=== PATIENT | male | born 1995 | race Caucasian/White ===

== ENCOUNTER 2017-10-01 19:53 | Emergency (ER) | payer OTHER ==
[~2017-10-01] VITALS: Ht 172.7 cm; Wt 66.5 kg
[2017-10-01 19:57] VITALS: Ht 172.7 cm; Wt 66.5 kg
[2017-10-01 20:29] LABS: BASO % 0.2 %; BASO ABS # 0.02 K/uL (0-0.2); EOS % 0.1 %; EOS ABS # 0.01 K/uL (0-0.5); HEMOGLOBIN 17.5 g/dL (14.0-18.0); IG# 0.01 K/uL (0.00-0.02); LYMPH % 21.5 %; LYMPH ABS # 1.74 K/uL (1.2-3.4); MEAN CELL VOLUME 83.6 fL (80-100); MEAN CORPUSCULAR HEMOGLOBIN 30.5 pg (25-34); MEAN CORPUSCULAR HGB CONC 36.5 g/dl (32-36); MEAN PLATELET VOLUME 8.6 fL (7.4-10.4); MONO % 4.6 %; MONO ABS # 0.37 K/uL (0.11-0.59); NEUT % 73.5 %; NEUT ABS # 5.96 K/uL (1.4-6.5); PLATELET COUNT 259 K/uL (130-400); RED CELL DISTRIBUTION WIDTH CV 12.1 % (11.5-14.5); RED CELL DISTRIBUTION WIDTH SD 36.3 fL (36.4-46.3); WHITE BLOOD COUNT 8.11 K/uL (4.8-10.8)
[2017-10-01 20:47] LABS: ALBUMIN 5.4 gm/dl (3.4-5.0); CALCIUM 9.6 mg/dl (8.5-10.1); CREATININE 1.12 mg/dl (0.60-1.40); POTASSIUM 3.1 mmol/L (3.5-5.1)
[2017-10-01 20:50] LABS: TOTAL PROTEIN 9.2 gm/dl (6.4-8.2)
--- NOTE | 2017-10-01 21:30 | DIAGNOSTIC IMAGING REPORT ---
(RENAL)RETROPERITON COMP HISTORY: Flank pain FLANK PAIN COMPARISON: None. FINDINGS: Right kidney: Maximum dimension 11.0 cm. No evidence for hydronephrosis. Normal corticomedullary differentiation and cortical thickness. Left kidney: Maximum dimension 12.1 cm. No evidence for hydronephrosis. Normal corticomedullary differentiation and cortical thickness. Bladder: No bladder wall thickening. The bilateral ureteral jets were identified. IMPRESSION: Normal renal ultrasound. The above report was generated using voice recognition software. It may contain grammatical, syntax or spelling errors. Electronically signed by: Bar Ramirez M.D. 10/01/2017 9:28 PM Dictated Date/Time: 10/01/2017 9:26 PM
[2017-10-01] MEDS ORDERED: DOXYCYCLINE HYCLATE 100 MG CAP PO STA (21:34)
[2017-10-01] MEDS ORDERED: CEFTRIAXONE SOD INJ 500 MG in DEXTROSE 5% 50ML 50 ML IV STA (21:34)
[2017-10-01] MEDS ORDERED: DOXY100C PO (21:58)
[2017-10-01 22:19] VITALS: BP 133/81; PULSE 106; TEMP 36.7; O2SAT 100
--- NOTE | 2017-10-01 23:01 | EMERGENCY ROOM VISIT NOTE ---
History Report prepared by Esther: Eleni Teixeira Under the Supervision of: Dr. Roman Chavez M.D. First contact with patient: 19:59 Chief Complaint: FLANK PAIN Stated Complaint: FLANK SORNESS/URINATION/REFERRED BY link bird History of Present Illness The patient is a 22 year old male who presents to the Emergency Room with complaints of persistent bilateral flank pain starting 2 days ago. He describes the pain as a tender soreness. He was sent to the ED from [facility] after a urine test. He started urinating frequently yesterday. He is urinating every 30 minutes. He thought that he might have an infection. He is having some burning with urination which he noticed today at [facility]. He denies any discharge, hematuria, fever, nausea, or vomiting. He has never had a UTI before. He denies any history of kidney problems. He is a [employer] student. He has a history of ADHD. He denies any other medical problems. He has not been taking any new OTC medications. He has lost 10 lbs over the past few months which was intentional. Source of History: patient Onset: 2 days ago Position: other (bilateral flank) Quality: other (tender/sore) Timing: other (persistent) Associated Symptoms: + urinary symptoms, No fevers, No nausea, No vomiting Review of Systems See HPI for pertinent positives & negatives. A total of 10 systems reviewed and were otherwise negative. Past Medical & Surgical Medical Problems: (1) ADHD Family History No pertinent family history stated. Social History Smoking Status: Never Smoker Marital Status: in relationship Occupation Status: [employer] student Current/Historical Medications Scheduled Doxycycline Hyclate (Vibramycin), 100 MG PO BID Allergies Coded Allergies: Amoxicillin (Verified Allergy, Intermediate, rash, 10/01/17) Clavulanic Acid (Verified Allergy, Intermediate, rash, 10/01/17) Uncoded Allergies: PENICILLIN (Allergy, Intermediate, rash, 10/01/17) Physical Exam Vital Signs Date Time Temp Pulse Resp B/P (MAP) Pulse Ox O2 Delivery O2 Flow Rate FiO2 10/01/17 22:19 36.7 106 18 133/81 100 10/01/17 19:57 36.7 93 18 131/85 99 Room Air Physical Exam GENERAL: Patient is in no acute distress. HEENT: No acute trauma, normocephalic atraumatic, mucous membranes moist, no nasal congestion, no scleral icterus. NECK: No stridor, no adenopathy, no meningismus, trachea is midline. LUNGS: Clear to auscultation bilaterally, no wheeze, no rhonchi, breath sounds equal. HEART: Without murmurs gallops or rubs, regular rate and rhythm. ABDOMEN: Soft, mildly tender in the epigastrium and LLQ, bowel sounds positive, no hernias, no peritonitis. BACK: No flank discomfort with percussion. EXTREMITIES: No cyanosis or edema, full range of motion of all the joints without pain or difficulty, no signs for acute trauma. NEUROLOGIC: Oriented x 3, no acute motor or sensory deficits, no focal weakness. SKIN: No rash, no jaundice, no diaphoresis. Medical Decision & Procedures ER Provider Diagnostic Interpretation: Radiology results as stated below per my review and radiologist interpretation: (RENAL)RETROPERITON COMP HISTORY: Flank pain FLANK PAIN COMPARISON: None. FINDINGS: Right kidney: Maximum dimension 11.0 cm. No evidence for hydronephrosis. Normal corticomedullary differentiation and cortical thickness. Left kidney: Maximum dimension 12.1 cm. No evidence for hydronephrosis. Normal corticomedullary differentiation and cortical thickness. Bladder: No bladder wall thickening. The bilateral ureteral jets were identified. IMPRESSION: Normal renal ultrasound. The above report was generated using voice recognition software. It may contain grammatical, syntax or spelling errors. Electronically signed by: Bar Ramirez M.D. 10/01/2017 9:28 PM Dictated Date/Time: 10/01/2017 9:26 PM Laboratory Results 10/01/17 20:14 Red Blood Count 5.74, Mean Corpuscular Volume 83.6, Mean Corpuscular Hemoglobin 30.5, Mean Corpuscular Hemoglobin Concent 36.5, Mean Platelet Volume 8.6, Neutrophils (%) (Auto) 73.5, Lymphocytes (%) (Auto) 21.5, Monocytes (%) (Auto) 4.6, Eosinophils (%) (Auto) 0.1, Basophils (%) (Auto) 0.2, Neutrophils # (Auto) 5.96, Lymphocytes # (Auto) 1.74, Monocytes # (Auto) 0.37, Eosinophils # (Auto) 0.01, Basophils # (Auto) 0.02 10/01/17 20:14 Test 10/01/17 20:12 10/01/17 20:14 Urine Color YELLOW Urine Appearance CLEAR (CLEAR) Urine pH 6.0 (4.5-7.5) Urine Specific [place] 1.011 (1.000-1.030) Urine Protein NEG (NEG) Urine Glucose (UA) NEG (NEG) Urine Ketones 1+ (NEG) Urine Occult Blood NEG (NEG) Urine Nitrite NEG (NEG) Urine Bilirubin NEG (NEG) Urine Urobilinogen NEG (NEG) Urine Leukocyte Esterase NEG (NEG) White Blood Count 8.11 K/uL (4.8-10.8) Red Blood Count 5.74 M/uL (4.7-6.1) Hemoglobin 17.5 g/dL (14.0-18.0) Hematocrit 48.0 % (42-52) Mean Corpuscular Volume 83.6 fL (80-100) Mean Corpuscular Hemoglobin 30.5 pg (25-34) Mean Corpuscular Hemoglobin Concent 36.5 g/dl (32-36) Platelet Count 259 K/uL (130-400) Mean Platelet Volume 8.6 fL (7.4-10.4) Neutrophils (%) (Auto) 73.5 % Lymphocytes (%) (Auto) 21.5 % Monocytes (%) (Auto) 4.6 % Eosinophils (%) (Auto) 0.1 % Basophils (%) (Auto) 0.2 % Neutrophils # (Auto) 5.96 K/uL (1.4-6.5) Lymphocytes # (Auto) 1.74 K/uL (1.2-3.4) Monocytes # (Auto) 0.37 K/uL (0.11-0.59) Eosinophils # (Auto) 0.01 K/uL (0-0.5) Basophils # (Auto) 0.02 K/uL (0-0.2) RDW Standard Deviation 36.3 fL (36.4-46.3) RDW Coefficient of Variation 12.1 % (11.5-14.5) Immature Granulocyte % (Auto) 0.1 % Immature Granulocyte # (Auto) 0.01 K/uL (0.00-0.02) Anion Gap 8.0 mmol/L (3-11) Est Creatinine Clear Calc Drug Dose 97.3 ml/min Estimated GFR () 107.5 Estimated GFR (Non- 92.7 BUN/Creatinine Ratio 9.6 (10-20) Calcium Level 9.6 mg/dl (8.5-10.1) Total Bilirubin 1.0 mg/dl (0.2-1) Aspartate Amino Transf (AST/SGOT) 15 U/L (15-37) Alanine Aminotransferase (ALT/SGPT) 25 U/L (12-78) Alkaline Phosphatase 83 U/L (45-117) Total Protein 9.2 gm/dl (6.4-8.2) Albumin 5.4 gm/dl (3.4-5.0) Globulin 3.8 gm/dl (2.5-4.0) Albumin/Globulin Ratio 1.4 (0.9-2) Laboratory results reviewed by me. Medications Administered Medications (Trade) Dose Ordered Sig/[place] Route Start Time Stop Time Status Last Admin Dose Admin Ceftriaxone Sodium 500 mg/ Dextrose 55 ml @ 100 mls/hr NOW STAT IV 10/01/17 21:34 10/01/17 22:06 DC 10/01/17 21:34 100 MLS/HR Doxycycline Hyclate (Vibramycin Cap) 100 mg NOW STAT PO 10/01/17 21:34 10/01/17 21:36 DC 10/01/17 21:34 100 MG ED Course 1999: The patient was evaluated in room A12B. A complete history and physical exam was performed. 2132: The patient is still at ultrasound. 2133: Doxycycline Hyclate 100 mg PO, Ceftriaxone Sodium 500 mg/Dextrose 55 ml @ 100 mls/hr IV. 2150: Reevaluated the patient. Discussed results and discharge instructions: He verbalized understanding and agreement. The patient is ready for discharge. Medical Decision Differential diagnoses considered include prostatitis, UTI, renal colic, renal failure, pyelonephritis, STD. There is no leukocytosis or concerning anemia. No significant electrolyte abnormality, kidney failure or hepatitis. Urinalysis does not show infection or significant hematuria. Renal ultrasound does not show hydronephrosis or any other pathology. On exam, the patient did not have scrotal cellulitis, he was not toxic or febrile. Patient received IV ceftriaxone and oral doxycycline. He may in fact have a prostatitis. At his age, ceftriaxone and doxycycline are the recommended antibiotics. The patient was discharged with a prescription for doxycycline. He will return if worsening or not improving. Outpatient follow-up with [facility] was suggested. Medication Reconcilliation Current Medication List: was personally reviewed by me Blood Pressure Screening Patient's blood pressure: Elevated blood pressure Blood pressure disposition: Elevated BP felt to be situational Impression Primary Impression: Urinary frequency Additional Impression: Dysuria Scribe Attestation The scribe's documentation has been prepared under my direction and personally reviewed by me in its entirety. I confirm that the note above accurately reflects all work, treatment, procedures, and medical decision making performed by me. Departure Information Dispostion Home / Self-Care Prescriptions Doxycycline Hyclate (VIBRAMYCIN) 100 Mg Cap 100 MG PO BID for 14 Days, #28 CAP Prov: Roman Chavez M.D. 10/01/17 Referrals No Doctor, Assigned (PCP) Forms HOME CARE DOCUMENTATION FORM, IMPORTANT VISIT INFORMATION Patient Instructions My [facility] Additional Instructions doxycycline 2x per day for 2 weeks be careful with the sun return for fever, vomiting or worsening symptoms lab testing was ok today kidney ultrasound was ok today Problem Qualifiers
== END 2017-10-01 22:20 | disposition home or self-care (01) ==
LOC: C.EDB 19:58 → C.EDA 22:20
DX: R35.0 Frequency of micturition (principal); R30.0 Dysuria; F90.9 Attention-deficit hyperactivity disorder, unspecified type; Z88.1 Allergy status to other antibiotic agents; Z88.0 Allergy status to penicillin; Z88.8 Allergy status to other drugs, medicaments and biological substances